=== PATIENT | male | born 1935 | race Caucasian/White ===

== ENCOUNTER → 2016-07-18 | Outpatient (CLI) | payer OTHER ==
[~2016-07-18] MED LIST: SULFUR HEXAFLUORIDE MICROSPHR 25 MG VIAL. IVP ONE
== END | disposition home or self-care (01) ==
LOC: PCVCIMAG 09:55
PROVIDERS: ATTEND Internal Medicine Cardiovascular Disease
DX: I25.10 Atherosclerotic heart disease of native coronary artery without angina pectoris (principal); E78.5 Hyperlipidemia, unspecified; I10 Essential (primary) hypertension; I25.5 Ischemic cardiomyopathy; I48.91 Unspecified atrial fibrillation; E78.00 Pure hypercholesterolemia, unspecified
CPT/HCPCS: 80061; 93005; 93306; G0463; Q9950

== ENCOUNTER → 2017-10-17 | Outpatient (CLI) | payer OTHER | END | disposition home or self-care (01) | LOC: PCVCCLINIC 11:05 | DX: I48.91 Unspecified atrial fibrillation (principal); I25.10 Atherosclerotic heart disease of native coronary artery without angina pectoris; I10 Essential (primary) hypertension; E78.00 Pure hypercholesterolemia, unspecified; I25.5 Ischemic cardiomyopathy; I65.29 Occlusion and stenosis of unspecified carotid artery; Z79.899 Other long term (current) drug therapy | CPT/HCPCS: 93005; G0463 ==

== ENCOUNTER → 2017-11-26 | Outpatient (CLI) | payer OTHER ==
[~2017-11-26] MED LIST changes: +REGADENOSON 0.4 MG/5 ML DISP.SYRIN. IV; -SULFUR HEXAFLUORIDE MICROSPHR 25 MG VIAL. IVP ONE
== END | disposition home or self-care (01) ==
LOC: PCVCIMAG 09:32
DX: I25.10 Atherosclerotic heart disease of native coronary artery without angina pectoris (principal); R07.89 Other chest pain; R06.09 Other forms of dyspnea; I10 Essential (primary) hypertension; E78.5 Hyperlipidemia, unspecified; I48.91 Unspecified atrial fibrillation
CPT/HCPCS: 78452; 93017; A9500; J2785

== ENCOUNTER → 2018-09-06 | Outpatient (CLI) | payer OTHER | END | disposition home or self-care (01) | LOC: PCVCCLINIC 14:00 | PROVIDERS: ATTEND Internal Medicine Cardiovascular Disease | DX: I25.10 Atherosclerotic heart disease of native coronary artery without angina pectoris (principal); I48.2 Chronic atrial fibrillation; I10 Essential (primary) hypertension; E78.00 Pure hypercholesterolemia, unspecified | CPT/HCPCS: 36415; 80061; 93005; G0463 ==